=== PATIENT | male | born 1995 | race Two or more races ===

== ENCOUNTER 2021-02-09 21:43 | Emergency (ER) | payer OTHER ==
[~2021-02-09] VITALS: Ht 182.9 cm; Wt 54.0 kg
[2021-02-09 21:47] VITALS: BP 127/84
[2021-02-09] MEDS ORDERED: TETanus/Pertussis (Acell)/Diphther VAC/PF (Tdap-Adult) 0.5ml syringe IMVAC ONE (23:40)
== END 2021-02-10 00:04 | disposition home or self-care (01) ==
LOC: ER 21:44
DX: S63.501A Unspecified sprain of right wrist, initial encounter (principal); T23.271A Burn of second degree of right wrist, initial encounter; W19.XXXA Unspecified fall, initial encounter; Y93.89 Activity, other specified; Y92.89 Other specified places as the place of occurrence of the external cause; Y99.8 Other external cause status
CPT/HCPCS: 90471; 90715; 99283

== ENCOUNTER 2023-01-13 07:12 | Emergency (ER) | payer MEDICAID ==
[~2023-01-13] VITALS: Ht 180.3 cm; Wt 54.3 kg
[2023-01-13 07:43] LABS: BASOPHILS % (AUTO) 0.2 % (0-1); EOSINOPHILS % (AUTO) 0.1 % (0-6); HEMATOCRIT 46.6 % (42.0-52.0); HEMOGLOBIN 15.6 g/dl (14.0-17.9); LYMPHOCYTES # (AUTO) 1.4 X10'3 (1.1-4.8); LYMPHOCYTES % (AUTO) 26.4 % (21-51); MEAN CORPUSCULAR HEMOGLOBIN 30.6 PG (27.0-31.0); MEAN CORPUSCULAR HGB CONC 33.3 g/dL (33.0-36.5); MEAN CORPUSCULAR VOLUME 91.9 FL (78-98); MEAN PLATELET VOLUME 9.1 FL (7.4-10.4); MONOCYTES # (AUTO) 0.4 X10'3 (0-0.9); MONOCYTES % (AUTO) 7.5 % (2-12); NEUTROPHILS # (AUTO) 3.5 X10'3 (1.8-7.7); NEUTROPHILS % (AUTO) 65.8 % (42-75); PLATELET COUNT 228 X10'3 (140-440); RED BLOOD COUNT 5.07 X10'6 (4.70-6.10); WHITE BLOOD COUNT 5.4 X10'3 (4.5-11.0)
[2023-01-13] MEDS ORDERED: ondansetron 4mg rapidly disintigrating tab PO ONE (07:45)
[2023-01-13] MEDS ORDERED: aspirin 81mg tab.chew PO ONE (07:45)
[2023-01-13 07:50] LABS: ALANINE AMINOTRANSFERASE 24 U/L (12-78); ALBUMIN 5.1 G/DL (3.4-5.0); ALBUMIN/GLOBULIN RATIO 1.3 (1.1-1.5); ALKALINE PHOSPHATASE 64 IU/L (46-116); ANION GAP 12 (8-16); ASPARTATE AMINO TRANSFERASE 17 U/L (10-37); BILIRUBIN,TOTAL 0.3 MG/DL (0.1-1.0); BLOOD UREA NITROGEN 5 MG/DL (7-18); BUN/CREATININE RATIO 5.6 (10.0-20.0); CALCIUM 9.3 MG/DL (8.5-10.1); CHLORIDE 99 MMOL/L (99-107); CREATININE 0.89 MG/DL (0.60-1.10); GLUCOSE 123 MG/DL (70-104); SODIUM 141 MMOL/L (135-145); TOTAL CARBON DIOXIDE 30.3 MMOL/L (24-32); eCRCL 94 ML/MIN; eGFR > 90 ML/MIN
[2023-01-13 07:58] LABS: ETHANOL 59 MG/DL (<10); LIPASE 40 U/L (16-77); MAGNESIUM 2.2 MG/DL (1.5-2.4); PRO BRAIN NATRIURETIC PEPTIDE < 30 PG/ML (0-125)
[2023-01-13] MEDS ORDERED: LORazepam 1 MG tablet PO ONE (08:00)
[2023-01-13] MEDS ORDERED: potassium Cl 20 mEq SR tablet PO ONE (08:00)
--- NOTE | 2023-01-13 08:08 | NUR ---
PMH given by "friend" Jagdeep Baez Pt endorses health information from [facility].
[2023-01-13] MEDS ORDERED: normal saline 1000ML IV soln IVB ONE (08:20)
[2023-01-13] MEDS ORDERED: magnesium 2GM in 50ml NS 50 ML IV ONE (08:20)
[2023-01-13] MEDS ORDERED: potassium CL 10mEq/100ml bag 100 ML IV ONE (08:20)
--- NOTE | 2023-01-13 08:53 | NUR ---
Pt RR counted by this RN and Summer [id number]. Will continue to monitor
[2023-01-13 08:55] LABS: THYROID STIMULATING HORMONE 1.58 ulU/ml (0.34-4.50)
[2023-01-13 09:06] LABS: URINE AMPHETAMINE SCREEN NEGATIVE (Neg); URINE BARBITUATE SCREEN NEGATIVE (Neg); URINE BENZODIAZEPINES SCREEN NEGATIVE (Neg); URINE CANNABINOID SCREEN NEGATIVE (Neg); URINE COCAINE SCREEN NEGATIVE (Neg); URINE METHADONE SCREEN NEGATIVE (Neg); URINE OPIATE SCREEN NEGATIVE (Neg); URINE PHENCYCLIDINE SCREEN NEGATIVE (Neg)
--- NOTE | 2023-01-13 09:22 | NUR ---
This RN contacted pharmacy re K+ and Mag run on y port together-compatible yes.
[2023-01-13] MEDS ORDERED: ketorolac tromethamine 15mg/ml inj. IV ONE (10:35)
[2023-01-13 11:42] VITALS: BP 116/78; PULSE 59; RESP 12; O2SAT 100
[2023-01-13] MEDS ORDERED: POTA-192 PO (11:48)
[2023-01-13] MEDS ORDERED: NAPR-56 PO (11:48)
--- NOTE | 2023-01-13 12:15 | NUR ---
DISCHARGE INSTRUCTIONS GIVEN BY RUBY BEJARANO IN [place]. RUBY INSTRUCTED PT NOT TO DRIVE AND THAT A TAXI CAN BE OFFERED IF NEEDED. PER RUBY BEJARANO PT VERBALIZED UNDERSTANDING/REFUSED TAXI/STATED THAT HE WOULD WALK TO HIS JOB WHICH IS CLOSE TO THE HOSPITAL/AND HAVE A FRIEND DRIVE HIM HOME.
[2023-01-13 12:21] VITALS: TEMP 98.1
== END 2023-01-13 12:24 | disposition home or self-care (01) ==
LOC: ER 07:13
DX: R07.89 Other chest pain (principal); R06.02 Shortness of breath; R11.10 Vomiting, unspecified; M79.10 Myalgia, unspecified site; F10.129 Alcohol abuse with intoxication, unspecified; E87.6 Hypokalemia; Z79.899 Other long term (current) drug therapy; Y90.2 Blood alcohol level of 40-59 mg/100 ml
CPT/HCPCS: 36415; 71045; 80053; 80305; 80320; 83690; 83735; 83880; 84443; 84484; 85025; 93005; 96365; 96366; 96368; 96375; 99285; J1885; J3475; J3480; J7030; 96361